=== PATIENT | male | born 1955 | race Caucasian/White ===

== ENCOUNTER → 2018-11-22 | Outpatient (CLI) | payer BC ==
--- NOTE | 2018-11-22 14:31 | US ---
EXAMINATION TYPE: US kidneys/renal and bladder DATE OF EXAM: 11/22/2018 COMPARISON: NONE CLINICAL HISTORY: R31.9 hematuria. EXAM MEASUREMENTS: Right Kidney: 11.2 x 5.2 x 5.3 cm Left Kidney: 11.5 x 6.4 x 4.8 cm Right Kidney: No hydronephrosis or masses seen Left Kidney: No hydronephrosis or masses seen Bladder: wnl Bilateral Jets seen: Yes There is no ascites evident. No nephrolithiasis is seen. No pathologic calcification. The urinary shantell dder is anechoic. Bilateral ureteral jets are seen. Cortical medullary differentiation is maintained. IMPRESSION: Renal sizes as described.
== END | disposition home or self-care (01) ==
LOC: RADUSWWP 13:16
PROVIDERS: ATTEND Family Medicine
DX: R31.9 Hematuria, unspecified (principal)
CPT/HCPCS: 76770

== ENCOUNTER → 2022-04-11 | Outpatient (CLI) | payer MEDICARE ==
--- NOTE | 2022-04-11 21:00 | CA ---
Stress Echo Report Maxi Wahl Age: 66 Gender: M : 1955 Exam Date: 04/11/2022 09:21 Exam Location: [place] [facility] Ht (in): 67 Wt (lb): 200 Ordering Physician: Jacob Rios MD Referring Physician: Gabriel LAKE Director Of Food And Beverage Services: SAM, Technologist Procedure CPT: Indication: R06.09 Dyspnea ICD-9 Codes: Rhythm: Patient History: HTN, FAMILY HX OF HEART DISEASE. PRIOR SMOKER, QUIT 20 YRS AGO. 1.5 PPD X 40 YEARS. Cardiac Medications: OMEPRAZOLE,,,,,, LISINOPRIL,,,,,, LESCOL,,,,,, METOPROLOL,,,,,, HZTZ,,,,,, CIALIS,,,,,, ASA 81 mg,,,,,, GABAPENTIN,,,,,, VITAMIN D,,,,, Medications in past 24 hours: Contrast: Stress Results Protocol: David Total dose(mL): Exercise Duration (min:sec): Max ST Depression (mm): Angina Score: Mendez Score: METS: 6.0 Resting HR: 68 Resting BP: 143 / 74 Peak HR: 163 Peak BP: 157 / 61 Max Predicted HR: 152 107 % Max Predicted HR Target HR: 129 Double Product: 04019 Stress Summary: BP Response: Reason for Termination: Dyspnea Maximum heart rate obtained Cardiac Symptoms: DIFFICULTY IN BREATHING ECG Analysis Resting ECG: Stress ECG: Arrhythmia: Echo Analysis Resting Echo: Peak Echo Analysis: MEASUREMENTS (Male/Female) Normal Values CONCLUSIONS Baseline heart rate 62 beats a minute Baseline blood pressure 143/74 mmHg Baseline crit EKG shows sinus rhythm and normal ST segments and occasional PVCs from the left ventricle qR pattern on lead V1 Patient exercised on a David protocol for only 4 minutes He became extremely short of breath his heart rates went up to 160 beats a minute with downsloping [address] depressions This could represent sinus tachycardia or an atrial tachycardia I do not have the exact onset and the exact offset of this rhythm to confirm whether this is sinus tachycardia or exercise- induced atrial tachycardia Baseline 2-D echo images showed normal LV systolic function @Peak exercise there was very mild augmentation of overall LV contractility. In addition to this the interventricular septum was more hypokinetic than the rest of the segments The contractility improved at recovery Depression Very low exercise capacity Shortness of breath with minimal exertion Abnormal, ischemic response on EKG Global ischemic response on stress echo images Possible sinus tachycardia versus exercise-induced atrial tachycardia Left-sided PVCs possibly from the aorto-mitral continuity Dr. Az Anders MD (Electronically Signed) Final Date: 11 April 2022 20:59
== END | disposition home or self-care (01) ==
LOC: RADNMMAIN 08:59
PROVIDERS: ATTEND Family Medicine
DX: R06.09 Other forms of dyspnea (principal); R94.31 Abnormal electrocardiogram [ECG] [EKG]
CPT/HCPCS: 93351

== ENCOUNTER 2022-05-03 07:48 | Day surgery (SDC) | payer MEDICARE ==
[2022-04-28 12:10] VITALS: BMI 31.3
[~2022-05-03 07:48] MED LIST: ALPRAZolam 0.25 MG TAB PO PRN; ALPRAZolam 0.5 MG TAB PO PRN; ASPIRIN 325 MG TAB PO STA; ATORVASTATIN 80 MG TAB PO STA; HEPARIN SODIUM,PORCINE 10,000 UNIT in SODIUM CHLORIDE 0.9% 1,000 ML IRRIGATION PRN; HEPARIN SODIUM,PORCINE 2,500 UNIT in SODIUM CHLORIDE 0.9% 250 ML IRRIGATION PRN; NITROGLYCERIN SL TABS 0.4 MG TAB SUBLINGUAL PRN; SODIUM CHLORIDE 0.9% 1,000 ML in EMPTY BAG 1 BAG IV SCH
[2022-05-03 08:42] VITALS: TEMP 98.1
[2022-05-03] MEDS ORDERED: VERAPAMIL 2.5 MG/ML 2 ML AMP ONE (09:25)
[2022-05-03] MEDS ORDERED: HEPARIN SODIUM 1,000 UN/ML (10ML VL) ONE (09:25)
[2022-05-03] MEDS ORDERED: LIDOCAINE 1% PF 10 MG/ML (5 ML AMP) SQ ONE (09:32)
[2022-05-03] MEDS ORDERED: MIDAZOLAM 2 MG/2 ML VIAL IV ONE (09:32)
[2022-05-03] MEDS: HEPARIN SODIUM 1,000 UN/ML (10ML VL) IV ONE ×2 (09:36→09:51)
[2022-05-03] MEDS ORDERED: VERAPAMIL SYRINGE (5 MG/10 ML) INTRAARTER ONE (09:36)
[2022-05-03] MEDS ORDERED: IOPAMIDOL-370 125ML BTL INJ ONE (10:01)
[2022-05-03] MEDS ORDERED: RX INFO: IV CONTRAST WAS GIVEN 1 EACH MISC MISCELLANE PRN (10:02)
[2022-05-03 10:11] LABS: Basophils # (A) 0.1 k/uL (0-0.2); Basophils % (A) 1 %; Eosinophils # (A) 0.3 k/uL (0-0.7); Eosinophils % (A) 5 %; HCT 38.7 % (39.0-53.0); HGB 13.2 gm/dL (13.0-17.5); Lymphocytes # (A) 1.1 k/uL (1.0-4.8); Lymphocytes % (A) 21 %; MCH 31.6 pg (25.0-35.0); MCHC 34.2 g/dL (31.0-37.0); MCV 92.5 fL (80.0-100.0); Mean Platelet Volume 7.4; Monocytes # (A) 0.3 k/uL (0-1.0); Monocytes % (A) 6 %; Neutrophils # (A) 3.2 k/uL (1.3-7.7); Neutrophils % (A) 64 %; Platelet Count 181 k/uL (150-450); RBC 4.18 m/uL (4.30-5.90); RDW 12.8 % (11.5-15.5); WBC 5.1 k/uL (3.8-10.6)
[2022-05-03] MEDS ORDERED: SODIUM CHLORIDE 0.9% 1,000 ML IV SCH (10:15)
[2022-05-03 10:29] LABS: African American GFR (CKD) >90 (>60 ml/min/1.73 sqM); Anion Gap 9 mmol/L; Blood Urea Nitrogen 15 mg/dL (9-20); Calcium 8.7 mg/dL (8.4-10.2); Carbon Dioxide 26 mmol/L (22-30); Chloride 100 mmol/L (98-107); Glucose 101 mg/dL (74-99); Non-African American GFR(CKD) >90 (>60 ml/min/1.73 sqM); Potassium 3.6 mmol/L (3.5-5.1); Sodium 135 mmol/L (137-145)
[2022-05-03 12:20] VITALS: RESP 16
[2022-05-03 15:23] VITALS: BP 114/66; PULSE 54
--- NOTE | 2022-05-03 15:58 | P.PCN ---
Date of Procedure: 05/03/22 Operative Findings: CARDIAC CATHETERIZATION PERFORMING PHYSICIAN: Kaiden Sequeira MD, RPVI PROCEDURE PERFORMED: 1. Selective right and left coronary angiogram 2. Left heart catheterization INDICATION: This is a 66-year-old gentleman with hypertension and dyslipidemia who was experiencing intermittent episodes of chest discomfort for the last several months. He underwent stress echocardiogram and that came in to be abnormal. The that heart catheterization was advised COMPLICATION: None APPROACH: Right radial artery LEVEL OF SEDATION: Moderate with a sedation length of 29 minutes PROCEDURE DESCRIPTION: After obtaining an informed consent, the patient was brought to cardiac cath lab radiology technician. Local anesthesia was performed using lidocaine subcutaneously. The right radial artery was cannulated using Seldinger technique, the guidewire passed easily, following that we advanced a 5-Samoan sheath dilator assembly, the wire and dilator were removed and sheath was flushed. Following that, 2 mg of verapamil along with 5000 unit heparin were given. Selective right and left coronary angiogram using a 6-Samoan JR4 and JL 3.5 catheters. The procedure was completed there was no complication. SELECTIVE CORONARY ANGIOGRAM: The right coronary artery: Is a large caliber vessel. The RCA is calcified. The RCA is chronically occluded long segment and fills by collateral mainly septal collateral from the left anterior descending. Left main: The ostial left main has mild disease only. Bifurcates into LCx and LAD The left circumflex: Large-caliber vessel and dominant vessel. The proximal LCx has mild disease only. It gives rises into the first OM which has intermediate lesion in the midportion. The distal left circumflex appeared to be angiographically normal and gives rises into second OM which has mild disease only before the circumflex continues as a small to medium caliber vessel in the AV groove The left anterior descending artery: The LAD is a large caliber vessel and is a calcified vessel. The proximal LAD has mild disease only. It gives rises into a large diagonal branch which has mild disease only. The mid LAD has a tubular lesion eccentric and calcified appeared to be in the range of 60%. We attempted doing FFR on the lesion but unfortunately because of technical issue the FFR machine was not working. The distal LAD appears to have mild disease only. The LAD reach the apex. CONCLUSION: 1. Calcified right and left coronary system 2. Chronic total occlusion of the RCA in the proximal portion. The RCA fills by septal collateral from the LAD 3. Intermediate lesion involving the mid LAD. Attempting performing FFR was unsuccessful because of technical issues POSTPROCEDURE MANAGEMENT: Maximize medical treatment Rule out ischemia in the LAD Follow-up with the patient
== END 2022-05-03 14:00 | disposition home or self-care (01) ==
LOC: CATHCVL 07:48
PROVIDERS: ATTEND Internal Medicine Interventional Cardiology
DX: I25.110 Atherosclerotic heart disease of native coronary artery with unstable angina pectoris (principal); I25.84 Coronary atherosclerosis due to calcified coronary lesion; I25.82 Chronic total occlusion of coronary artery; I10 Essential (primary) hypertension; E78.00 Pure hypercholesterolemia, unspecified; R93.1 Abnormal findings on diagnostic imaging of heart and coronary circulation; Z20.822 Contact with and (suspected) exposure to COVID-19; E78.5 Hyperlipidemia, unspecified; G47.33 Obstructive sleep apnea (adult) (pediatric); Z82.49 Family history of ischemic heart disease and other diseases of the circulatory system; F17.200 Nicotine dependence, unspecified, uncomplicated; Z79.899 Other long term (current) drug therapy
CPT/HCPCS: 93458; 80048; 85025; 87635; C1887; C1769 ×2; C1894; J2250; J2001; J1644; Q9967

== ENCOUNTER 2022-05-22 07:53 | Day surgery (SDC) | payer MEDICARE ==
[~2022-05-22 07:53] MED LIST changes: -SODIUM CHLORIDE 0.9% 1,000 ML in EMPTY BAG 1 BAG IV SCH
[2022-05-22] MEDS: SODIUM CHLORIDE 0.9% 1,000 ML in EMPTY BAG 1 BAG IV SCH ×2 (08:15→16:23)
[2022-05-22] MEDS ORDERED: VERAPAMIL 2.5 MG/ML 2 ML AMP ONE (09:36)
[2022-05-22] MEDS ORDERED: HEPARIN SODIUM 1,000 UN/ML (10ML VL) ONE (09:37)
[2022-05-22] MEDS ORDERED: MIDAZOLAM 2 MG/2 ML VIAL IV ONE ×3 (10:07→10:33)
[2022-05-22] MEDS ORDERED: LIDOCAINE 1% INJ 10MG/ML (5 ML VIAL-PF) SQ ONE (10:09)
[2022-05-22] MEDS ORDERED: VERAPAMIL SYRINGE (5 MG/10 ML) INTRAARTER ONE (10:11)
[2022-05-22] MEDS: HEPARIN SODIUM 1,000 UN/ML (10ML VL) IV ONE ×2 (10:13→10:26)
[2022-05-22] MEDS ORDERED: CLOPIDOGREL 75 MG TAB ONE (10:24)
[2022-05-22] MEDS ORDERED: IOPAMIDOL-370 125ML BTL INJ ONE (10:33)
[2022-05-22] MEDS ORDERED: CLOPIDOGREL 75 MG TAB PO ONE (10:33)
[2022-05-22] MEDS ORDERED: MAG HYDROX/AL HYDROX/SIMETH 30 ML CUP PO PRN (10:50)
[2022-05-22] MEDS ORDERED: ATROPINE SULFATE 0.1 MG/ML 10ML SYRINGE IV PRN (10:50)
[2022-05-22] MEDS ORDERED: ZOLPIDEM 5 MG TAB PO PRN (10:50)
[2022-05-22] MEDS ORDERED: RX INFO: IV CONTRAST WAS GIVEN 1 EACH MISC MISCELLANE PRN (10:50)
--- NOTE | 2022-05-22 11:16 | P.PCN ---
Date of Procedure: 05/22/22 Operative Findings: PERCUTANEOUS CORONARY INTERVENTION Performing physician Kaiden Sequeira M.D. Procedure Performed: 1. Fractional flow reserve of the left anterior descending artery 2. Successful stending of the mid LAD using 3.0 x 18 mm Xience drug-eluting stent with an excellent angiographic result. Indication: This is 66-year-old gentleman who was experiencing symptoms of chest discomfort. He underwent a heart catheterization recently and that revealed intermediate lesion involving the LAD. He was brought today to undergo an FFR of the LAD Approach: Right radial artery Complications: None Level of Sedation: Moderate with a sedation length of 24 minutes Procedure Discussion: After obtaining an informed consent the patient was brought to the cardiac radiographer cardiac catheterization. The right radial artery was cannulated using micropuncture technique, the micropuncture wire passed easily then I placed a 6-Arabic sheath. I gave the patient 2 mg of verapamil intra-arterial and a total of 8000 units of heparin IV. Continuous ACT monitoring was performed. Subsequently after zeroing Doppler wire and equalizing between the Doppler wire and the guiding catheter which was JL 3.5 guiding catheter we did an iFR and that came in to be ischemic at 0.86. We did not have to go with IV adenosine because the lesion was ischemic. Subsequently I did balloon angioplasty of the LAD using 2.75 x 12 mm balloon before I deployed 3.0 x 18 mm stent where the stent was positioned under fluoroscopy guidance and deployed under 14 darline for 20 seconds. The final angiogram showed good angiographic results and the procedure was completed without any complications Postprocedure Management: 1. dual antiplatelet therapy with aspirin and Plavix for 6 months and preferably for a year 2. aggressive cholesterol control 3. risk factors modification
[2022-05-22 14:36] VITALS: BMI 30.3
[2022-05-22] MEDS ORDERED: lisinopriL 20 MG TAB PO SCH (21:00)
[2022-05-22] MEDS ORDERED: CHOLECALCIFEROL 25 MCG (1000 IU) TABLET PO SCH (21:00)
[2022-05-23 04:16] VITALS: PULSE 60
[2022-05-23] MEDS ORDERED: PANTOPRAZOLE 40 MG TABLET PO SCH (07:30)
[2022-05-23 08:17] LABS: Basophils % (A) 1 %; Eosinophils # (A) 0.4 k/uL (0-0.7); Eosinophils % (A) 7 %; HCT 39.5 % (39.0-53.0); HGB 13.9 gm/dL (13.0-17.5); Lymphocytes # (A) 0.5 k/uL (1.0-4.8); Lymphocytes % (A) 10 %; MCH 32.5 pg (25.0-35.0); MCHC 35.2 g/dL (31.0-37.0); MCV 92.1 fL (80.0-100.0); Mean Platelet Volume 7.4; Monocytes # (A) 0.3 k/uL (0-1.0); Monocytes % (A) 6 %; Neutrophils # (A) 3.7 k/uL (1.3-7.7); Neutrophils % (A) 75 %; Platelet Count 189 k/uL (150-450); RBC 4.28 m/uL (4.30-5.90); RDW 12.5 % (11.5-15.5)
[2022-05-23 08:27] LABS: African American GFR (CKD) >90 (>60 ml/min/1.73 sqM); Anion Gap 7 mmol/L; Blood Urea Nitrogen 11 mg/dL (9-20); Calcium 8.7 mg/dL (8.4-10.2); Carbon Dioxide 28 mmol/L (22-30); Chloride 100 mmol/L (98-107); Glucose 114 mg/dL (74-99); Non-African American GFR(CKD) >90 (>60 ml/min/1.73 sqM); Potassium 3.6 mmol/L (3.5-5.1); Sodium 135 mmol/L (137-145)
[2022-05-23] MEDS ORDERED: CLOPIDOGREL 75 MG TAB PO SCH (09:00)
[2022-05-23] MEDS ORDERED: ASPIRIN 81 MG PO SCH (09:00)
[2022-05-23] MEDS ORDERED: ISOSORBIDE MONONITRATE ER 30 MG TAB.ER.24H PO SCH (09:00)
[2022-05-23] MEDS ORDERED: FLUVASTATIN SODIUM 80 MG PO SCH (09:00)
[2022-05-23] MEDS ORDERED: hydroCHLOROthiazide 25 MG TAB PO SCH (09:00)
[2022-05-23] MEDS ORDERED: ATORVASTATIN 80 MG TAB PO SCH (09:00)
[2022-05-23] MEDS ORDERED: METOPROLOL SUCCINATE (ER) 100 MG TAB.ER.24H PO SCH (09:00)
--- NOTE | 2022-05-23 10:11 | P.DS ---
Providers Attending physician: Kaiden Sequeira Consults: 05/22/22 10:50 Consult Physician Routine Consulting Provider: [facility] Consult Reason/Comments: Post Interventional patient Do you want consulting provider notified?: Already Contacted Primary care physician: Jacob Hernandez [facility] Course: The patient is a pleasant 66-year-old gentleman who underwent yesterday fractional flow reserve which came in to be ischemic and subsequently he underwent stenting of the LAD with a good angiographic results and without any complication from right radial approach. He was seen this morning. He is asymptomatic. He is hemodynamically stable. The right radial site is soft an nontender with a good pulse. The patient is going to be discharged on dual antiplatelet therapy and I'll follow-up with the patient in a week in the office Plan - Discharge Summary Discharge Rx Participant: No New Discharge Prescriptions: New Clopidogrel [Plavix] 75 mg PO DAILY #90 tablet Continue hydroCHLOROthiazide [Hydrodiuril] 25 mg PO DAILY lisinopriL [Zestril] 20 mg PO HS Metoprolol Succinate [Toprol XL] 100 mg PO DAILY Omeprazole [PriLOSEC] 20 mg PO AC-BRKFST Atorvastatin [Lipitor] 80 mg PO DAILY Isosorbide Mononitrate ER [Imdur] 30 mg PO DAILY Cholecalciferol [Vitamin D3 (25 Mcg = 1000 Iu)] 50 mcg PO HS Aspirin [Adult Low Dose Aspirin EC] 81 mg PO DAILY tadalafiL [Cialis] 5 mg PO DAILY Discontinued Fluvastatin Sodium [Lescol Xl] 80 mg PO DAILY Discharge Medication List Aspirin [Adult Low Dose Aspirin EC] 81 mg PO DAILY 04/28/22 [History] Cholecalciferol [Vitamin D3 (25 Mcg = 1000 Iu)] 50 mcg PO HS 04/28/22 [History] Metoprolol Succinate [Toprol XL] 100 mg PO DAILY 04/28/22 [History] Omeprazole [PriLOSEC] 20 mg PO AC-BRKFST 04/28/22 [History] hydroCHLOROthiazide [Hydrodiuril] 25 mg PO DAILY 04/28/22 [History] lisinopriL [Zestril] 20 mg PO HS 04/28/22 [History] tadalafiL [Cialis] 5 mg PO DAILY 04/28/22 [History] Atorvastatin [Lipitor] 80 mg PO DAILY 05/18/22 [History] Isosorbide Mononitrate ER [Imdur] 30 mg PO DAILY 05/18/22 [History] Clopidogrel [Plavix] 75 mg PO DAILY #90 tablet 05/23/22 [Rx] Follow up Appointment(s)/Referral(s): Kaiden Sequeira MD [STAFF PHYSICIAN] - 1 Week (APPOINTMENT MADE ON May @ 4:30PM ) Patient Instructions/Handouts: *[facility] - After Heart Catheterization - [facility] Instructions, Moderate Sedation (ED)
[2022-05-23 11:29] VITALS: BP 110/68; RESP 18; TEMP 98.6
== END 2022-05-23 14:28 | disposition home or self-care (01) ==
LOC: CATHCVL 07:53 → 3SCARD 10:30 → CATHCVL 05-23 14:28
PROVIDERS: ATTEND Internal Medicine Interventional Cardiology
DX: I25.10 Atherosclerotic heart disease of native coronary artery without angina pectoris (principal); I25.82 Chronic total occlusion of coronary artery; I10 Essential (primary) hypertension; E78.5 Hyperlipidemia, unspecified; G47.30 Sleep apnea, unspecified; N52.9 Male erectile dysfunction, unspecified; F17.200 Nicotine dependence, unspecified, uncomplicated; Z20.822 Contact with and (suspected) exposure to COVID-19; Z79.899 Other long term (current) drug therapy; Z82.49 Family history of ischemic heart disease and other diseases of the circulatory system
CPT/HCPCS: 93799; 80048; 85025; 87635; C9600; C1769 ×2; C1887; C1894; C1725; C1874; J2250; J2001; J1644; Q9967

== ENCOUNTER 2025-05-01 10:04 | Day surgery (SDC) | payer MEDICARE ==
[~2025-05-01 10:04] MED LIST changes: -ASPIRIN 325 MG TAB PO STA; -ATORVASTATIN 80 MG TAB PO STA; -HEPARIN SODIUM,PORCINE 10,000 UNIT in SODIUM CHLORIDE 0.9% 1,000 ML IRRIGATION PRN; -HEPARIN SODIUM,PORCINE 2,500 UNIT in SODIUM CHLORIDE 0.9% 250 ML IRRIGATION PRN
[2025-05-01] MEDS: ASPIRIN 325 MG TAB PO STA (10:44)
[2025-05-01] MEDS: IV FLUID CONTINUATION 1,000 ML IV ONE (10:45)
[2025-05-01] MEDS: SODIUM CHLORIDE 0.9% 1,000 ML in EMPTY BAG 1 BAG IV SCH (10:45)
[2025-05-01 11:27] LABS: Basophils # (A) 0.07 10*3/uL (0.00-0.10); Basophils % (A) 1.3 %; Eosinophils # (A) 0.35 10*3/uL (0.04-0.35); Eosinophils % (A) 6.3 %; HCT 34.6 % (39.6-50.0); HGB 12.7 g/dL (13.0-17.0); Lymphocytes # (A) 1.31 10*3/uL (0.90-5.00); Lymphocytes % (A) 23.6 %; MCH 33.3 pg (27.0-32.0); MCHC 36.7 g/dL (32.0-37.0); MCV 90.8 fL (80.0-97.0); Monocytes # (A) 0.42 10*3/uL (0.20-1.00); Monocytes % (A) 7.6 %; Neutrophils # (A) 3.39 10*3/uL (1.80-7.70); Neutrophils % (A) 60.8 %; Platelet Count 181 10*3/uL (140-440); RBC 3.81 10*6/uL (4.40-5.60); RDW 13.1 % (11.5-14.5); WBC 5.56 10*3/uL (4.50-10.00)
[2025-05-01 12:08] LABS: African American GFR (CKD) >90 (>60 ml/min/1.73 sqM); Anion Gap 8 mmol/L; Blood Urea Nitrogen 14 mg/dL (9-20); Calcium 8.0 mg/dL (8.4-10.2); Carbon Dioxide 28 mmol/L (22-30); Chloride 100 mmol/L (98-107); Glucose 82 mg/dL (74-99); Non-African American GFR(CKD) >90 (>60 ml/min/1.73 sqM); Potassium 3.3 mmol/L (3.5-5.1); Sodium 136 mmol/L (137-145)
[2025-05-01] MEDS: MIDAZOLAM 2 MG/2 ML VIAL IVP ONE (12:30)
[2025-05-01] MEDS: fentaNYL (PF) 50 MCG/ML 2 ML AMP IVP ONE (12:30)
[2025-05-01] MEDS: LIDOCAINE 1% INJ 10MG/ML (20 ML MDV) SQ ONE (12:33)
[2025-05-01] MEDS: VERAPAMIL SYRINGE (5 MG/10 ML) INTRAARTER ONE (12:34)
[2025-05-01] MEDS: HEPARIN SODIUM 1,000 UN/ML (10ML VL) IVP ONE (12:35)
[2025-05-01] MEDS: HEPARIN SODIUM,PORCINE 10,000 UNIT in SODIUM CHLORIDE 0.9% 1,000 ML IRRIGATION PRN (12:40)
[2025-05-01] MEDS: HEPARIN SODIUM,PORCINE (1 ML) 2,500 UNIT in SODIUM CHLORIDE 0.9% 250 ML IRRIGATION PRN (12:40)
[2025-05-01] MEDS: PRASUGREL 10 MG TAB PO ONE (13:02)
[2025-05-01] MEDS: NITROGLYCERIN 1000MCG/10ML SYRINGE INTRACORON ONE (13:02)
[2025-05-01] MEDS: IOPAMIDOL-370 100ML BTL INJ ONE ×2 (13:07→13:09)
[2025-05-01] MEDS ORDERED: MAG HYDROX/AL HYDROX/SIMETH 30 ML CUP PO PRN (13:22)
[2025-05-01] MEDS ORDERED: ZOLPIDEM 5 MG TAB PO PRN (13:22)
[2025-05-01] MEDS ORDERED: ATROPINE SULFATE 0.1 MG/ML 10ML SYRINGE IV PRN (13:22)
[2025-05-01] MEDS ORDERED: RX INFO: IV CONTRAST WAS GIVEN 1 EACH MISC MISCELLANE PRN (13:22)
[2025-05-01] MEDS: CHOLECALCIFEROL 25 MCG (1000 IU) TABLET PO SCH (20:34)
--- NOTE | 2025-05-01 21:29 | P.PCN ---
Date of Procedure: 05/01/25 Operative Findings: Cardiac catheterization and percutaneous coronary intervention Performing physician Kaiden Ross MD Procedure performed 1. Selective right and left coronary angiogram 2. Successful stenting of the ramus intermedius coronary artery using 2.5 x 33 mm Xience ROBINA with an excellent angiographic results 3. IFR of the ramus intermedius 4. IFR of the LCx 5. Ultrasound-guided access of the right radial artery Indication Chest discomfort concerning for angina Approach Right radial artery Complication None Level of sedation Moderate to sedation next of 40 minutes Procedure description After obtaining informed consent the patient was brought to the cardiac Media Account Executive. The right radial artery was cannulated using micropuncture technique under ultrasound guidance micropuncture wire passed easily then I placed a 6 Lao 11 cm sheath at the right radial artery and gave the patient 5000 minutes of heparin IV with continuous ACT monitoring. Subsequently I did selective right and left coronary angiogram using JR4 angio 3.5 catheters. After that I decided to do an IFR of the LCx and ramus intermedius. After zeroing to Doppler wire and equalized in between the Doppler wire and guiding catheter the left main was engaged and subsequently the left circumflex was wired using the Doppler wire with IFR came to be at 0.94 which was not flow-limiting. After that the wire was advanced toward the ramus intermedius with IFR came to be abnormal and ischemic and at that point I decided to intervene on the ramus intermedius. Predilatation was performed using 2.5 mm balloon before I deployed a 2.5 x 33 mm stent where the stent was positioned under fluoroscopy guidance and deployed under fluoroscopy guidance. Final angiogram showed good angiographic results and the procedure was completed with no complication Selective coronary angiogram The RCA is a large-caliber vessel and a dominant vessel and appears to be chronically occluded which is a normal finding from before The left main is calcified with mild disease only The left circumflex has a intermediate lesion documented to be nonflow limiting by Doppler wire The ramus intermedius has intermediate lesion documented to be flow-limiting by Doppler wire The LAD stent in the midportion appeared to be patent Conclusion Patent stent in the mid LAD Severe disease involving the ramus intermedius. I did perform successful PCI as described above Intermediate disease involving the mid LCx with negative IFR Postprocedure management Dual antiplatelet therapy using aspirin and Brilinta for 12 months Aggressive cholesterol control Follow-up with the patient
[2025-05-02 04:45] LABS: African American GFR (CKD) >90 (>60 ml/min/1.73 sqM); Anion Gap 8 mmol/L; Blood Urea Nitrogen 13 mg/dL (9-20); Calcium 8.0 mg/dL (8.4-10.2); Carbon Dioxide 26 mmol/L (22-30); Chloride 106 mmol/L (98-107); Glucose 126 mg/dL (74-99); Non-African American GFR(CKD) >90 (>60 ml/min/1.73 sqM); Potassium 3.2 mmol/L (3.5-5.1); Sodium 140 mmol/L (137-145)
[2025-05-02 04:52] LABS: Basophils # (A) 0.05 10*3/uL (0.00-0.10); Basophils % (A) 1.1 %; Eosinophils # (A) 0.27 10*3/uL (0.04-0.35); Eosinophils % (A) 5.9 %; HCT 33.3 % (39.6-50.0); HGB 11.9 g/dL (13.0-17.0); Immature Platelet Fraction 1.1 % (1.1-6.1); Lymphocytes # (A) 0.95 10*3/uL (0.90-5.00); Lymphocytes % (A) 20.8 %; MCH 32.7 pg (27.0-32.0); MCHC 35.7 g/dL (32.0-37.0); MCV 91.5 fL (80.0-97.0); Monocytes # (A) 0.25 10*3/uL (0.20-1.00); Monocytes % (A) 5.5 %; Neutrophils # (A) 3.04 10*3/uL (1.80-7.70); Neutrophils % (A) 66.5 %; Platelet Count 159 10*3/uL (140-440); RBC 3.64 10*6/uL (4.40-5.60); RDW 13.3 % (11.5-14.5); WBC 4.57 10*3/uL (4.50-10.00)
[2025-05-02] MEDS: PANTOPRAZOLE 40 MG TABLET PO SCH (06:22)
[2025-05-02 08:32] VITALS: BP 134/70; PULSE 53; RESP 13; TEMP 97.6
--- NOTE | 2025-05-02 08:48 | P.DS ---
Providers Attending physician: Kaiden Seqeuira Consults: 05/01/25 13:22 Consult Physician Routine Consulting Provider: [facility] Consult Reason/Comments: Post Interventional patient Do you want consulting provider notified?: Already Contacted Primary care physician: Jacob Hernandez [facility] Course: The patient is a 69-year-old gentleman who underwent yesterday heart catheterization and PCI of the ramus intermedius He was seen and evaluated this morning. He is asymptomatic and hemodynamically stable The potassium is low and in process to be replaced The patient will be discharged later on today on dual antiplatelet therapy and statin and I will follow-up with the patient Plan - Discharge Summary Discharge Rx Participant: Yes New Discharge Prescriptions: New Prasugrel [Effient] 10 mg PO DAILY #90 tablet Continue hydroCHLOROthiazide [Hydrodiuril] 25 mg PO DAILY lisinopriL [Zestril] 20 mg PO HS Metoprolol Succinate [Toprol XL] 100 mg PO DAILY Omeprazole [PriLOSEC] 20 mg PO AC-BRKFST Atorvastatin [Lipitor] 80 mg PO DAILY Cholecalciferol [Vitamin D3 (25 Mcg = 1000 Iu)] 50 mcg PO HS Aspirin [Adult Low Dose Aspirin EC] 81 mg PO DAILY tadalafiL [Cialis] 5 mg PO DAILY Discharge Medication List Aspirin [Adult Low Dose Aspirin EC] 81 mg PO DAILY 04/28/22 [History] Cholecalciferol [Vitamin D3 (25 Mcg = 1000 Iu)] 50 mcg PO HS 04/28/22 [History] Metoprolol Succinate [Toprol XL] 100 mg PO DAILY 04/28/22 [History] Omeprazole [PriLOSEC] 20 mg PO AC-BRKFST 04/28/22 [History] hydroCHLOROthiazide [Hydrodiuril] 25 mg PO DAILY 04/28/22 [History] lisinopriL [Zestril] 20 mg PO HS 04/28/22 [History] tadalafiL [Cialis] 5 mg PO DAILY 04/28/22 [History] Atorvastatin [Lipitor] 80 mg PO DAILY 05/18/22 [History] Prasugrel [Effient] 10 mg PO DAILY #90 tablet 05/02/25 [Rx] Follow up Appointment(s)/Referral(s): Kaiden Sequeira MD [STAFF PHYSICIAN] - 1 Week (OFFICE WILL CALL PATIENT WITH A FOLLOW UP APPOINTMENT DATE/TIME. )
[2025-05-02] MEDS ORDERED: NON FORMULARY DRUG (Aspirin [Adult Low Dose Aspirin Ec] 81 MG Tablet) PO SCH (09:00)
[2025-05-02] MEDS: METOPROLOL SUCCINATE (ER) 100 MG TAB.ER.24H PO SCH (09:19)
[2025-05-02] MEDS: POTASSIUM CHLORIDE ER 20 MEQ TAB.ER PO STA (09:19)
[2025-05-02] MEDS: PRASUGREL 10 MG TAB PO SCH (09:19)
[2025-05-02] MEDS: ATORVASTATIN 80 MG TAB PO SCH (09:19)
[2025-05-02] MEDS: hydroCHLOROthiazide 25 MG TAB PO SCH (09:19)
[2025-05-02] MEDS: ASPIRIN 81 MG PO SCH (09:19)
== END 2025-05-02 10:23 | disposition home or self-care (01) ==
LOC: CATHCVL 10:04 → 6NMEDSUR 13:09 → CATHCVL 05-02 10:23
PROVIDERS: ATTEND Internal Medicine Interventional Cardiology
DX: I25.10 Atherosclerotic heart disease of native coronary artery without angina pectoris (principal); I10 Essential (primary) hypertension; E78.5 Hyperlipidemia, unspecified; I38 Endocarditis, valve unspecified; Z79.02 Long term (current) use of antithrombotics/antiplatelets; Z79.82 Long term (current) use of aspirin; Z79.899 Other long term (current) drug therapy; Z95.5 Presence of coronary angioplasty implant and graft; Z87.891 Personal history of nicotine dependence
CPT/HCPCS: 93454; 93799; 80048 ×2; 85025 ×2; 99152; 99153; C9600; C1769 ×3; C1894; C1725; C1874; C1887; J2250; J1644 ×3; J2003; J3010; Q9967; J2305